=== PATIENT | male | born 1955 | race African-American/Black ===

== ENCOUNTER 2019-01-21 11:46 | Emergency (ER) | payer MEDICARE ==
[~2019-01-21] VITALS: Ht 177.8 cm; Wt 65.0 kg
[2019-01-21] MEDS ORDERED: SODIUM CHLORIDE 0.9% 1,000 ML IV ONE ×2 (12:30→13:15)
[2019-01-21 12:39] LABS: BASOPHILS % 0.9 % (0.0-2.0); EOSINOPHILS % 0.8 % (0.0-5.0); HEMATOCRIT. 39.6 % (42.0-52.0); HEMOGLOBIN. 13.4 g/dL (14.0-18.0); LYMPHOCYTES % 21.8 % (20.0-50.0); MEAN CORPUSCULAR HEMOGLOBIN 29.1 pg (28.0-32.0); MEAN CORPUSCULAR VOLUME 85.6 fL (80.0-94.0); MEAN PLATELET VOLUME 7.2 fl (7.4-10.4); MONOCYTES % 3.2 % (2.0-8.0); NEUTROPHILS % 73.3 % (40.0-76.0); PLATELET 409 x1000/uL (130-400); RED BLOOD CELL COUNT 4.62 mill/uL (4.7-6.1); RED CELL DISTRIBUTION WIDTH 14.5 % (11.6-14.6)
[2019-01-21 12:41] LABS: CHLORIDE 108 mEq/L (98-107); INR 1.1
[2019-01-21] MEDS ORDERED: ONDANSETRON HCL 4MG/2ML INJ IV ONE (13:15)
[2019-01-21 14:31] VITALS: BP 124/68
== END 2019-01-21 15:18 | disposition home or self-care (01) ==
LOC: ER 11:46
DX: I95.89 Other hypotension (principal); D64.9 Anemia, unspecified; E87.6 Hypokalemia; D47.3 Essential (hemorrhagic) thrombocythemia; E88.09 Other disorders of plasma-protein metabolism, not elsewhere classified
CPT/HCPCS: 36415; 71045; 80053; 83880; 84484; 85025; 85610; 93005; 96361; 96374; 99284; J2405; J7030

== ENCOUNTER 2020-07-21 16:36 | Emergency (ER) | payer MEDICARE ==
[~2020-07-21] VITALS: Ht 170.2 cm; Wt 75.0 kg
[2020-07-21 16:38] VITALS: BP 128/89
[2020-07-21] MEDS ORDERED: IBUPROFEN 600MG TABLET PO ONE (17:00)
== END 2020-07-21 18:30 | disposition home or self-care (01) ==
LOC: ER 16:36
DX: S40.011A Contusion of right shoulder, initial encounter (principal); S50.01XA Contusion of right elbow, initial encounter; S60.211A Contusion of right wrist, initial encounter; V17.0XXA Pedal cycle driver injured in collision with fixed or stationary object in nontraffic accident, initial encounter; Y93.55 Activity, bike riding; Y92.488 Other paved roadways as the place of occurrence of the external cause
CPT/HCPCS: 71045; 73030; 73080; 73110; 99284

== ENCOUNTER 2022-02-16 13:38 | Emergency (ER) | payer MEDICARE ==
[~2022-02-16] VITALS: Ht 172.7 cm; Wt 80.0 kg
[2022-02-16] MEDS ORDERED: SODIUM CHLORIDE 0.9% 1,000 ML IV ONE (15:30)
[2022-02-16 15:54] LABS: CLARITY URINE CLEAR (CLEAR); COLOR URINE YELLOW (YELLOW); KETONES URINE NEGATIVE (NEGATIVE); LEUKOCYTE ESTERASE URINE NEGATIVE (NEGATIVE); NITRITE URINE NEGATIVE (NEGATIVE); OCCULT BLOOD URINE NEGATIVE (NEGATIVE); PROTEIN URINE NEGATIVE (NEGATIVE); SPECIFIC GRAVITY URINE 1.021 (1.005-1.030); UROBILINOGEN URINE 0.2 E.U./dL (0.2-1.0)
[2022-02-16 17:29] VITALS: BP 130/77
[2022-02-16 17:52] LABS: CHLORIDE 108 mEq/L (98-107)
[2022-02-16 17:53] LABS: BASOPHILS % 0.9 % (0.0-2.0); EOSINOPHILS % 1.6 % (0.0-5.0); HEMATOCRIT. 43.8 % (42.0-52.0); HEMOGLOBIN. 14.8 g/dL (14.0-18.0); MEAN CORPUSCULAR VOLUME 82.7 fL (80.0-94.0); MEAN PLATELET VOLUME 8.2 fl (7.4-10.4); MONOCYTES % 9.2 % (2.0-8.0); NEUTROPHILS % 68.3 % (40.0-76.0); PLATELET 310 x1000/uL (130-400); RED BLOOD CELL COUNT 5.29 mill/uL (4.7-6.1)
== END 2022-02-16 19:51 | disposition home or self-care (01) ==
LOC: ER 13:38
DX: R33.9 Retention of urine, unspecified (principal); R10.30 Lower abdominal pain, unspecified; Z87.891 Personal history of nicotine dependence
CPT/HCPCS: 36415; 51702; 80053; 81003; 83690; 85025; 93005; 96360; 99284; J7030; A4315

== ENCOUNTER 2022-02-22 03:19 | Emergency (ER) | payer MEDICARE ==
[~2022-02-22] VITALS: Ht 167.6 cm; Wt 63.0 kg
[2022-02-22 11:54] VITALS: BP 136/91
== END 2022-02-22 11:55 | disposition home or self-care (01) ==
LOC: ER 03:19
DX: Z46.6 Encounter for fitting and adjustment of urinary device (principal); R33.9 Retention of urine, unspecified; R10.30 Lower abdominal pain, unspecified; R03.0 Elevated blood-pressure reading, without diagnosis of hypertension
CPT/HCPCS: 51702; 99284; A4315